=== PATIENT | female | born 1935 | race African-American/Black ===

== ENCOUNTER 2020-04-10 12:47 | Emergency (ER) | payer OTHER, MEDICAID, SELFPAY ==
--- NOTE | ~2020-04-10 | XR_ITS ---
XR knee LT 3V 04/10/2020 13:18 Indication: Left knee pain Procedure: 4 views left knee Comparison: No prior studies for comparison. Findings: There is a left total knee arthroplasty with longstem femoral and tibial components. Prosth esis well seated. There is lucency involving the medial femoral condyle, suspicious for nondisplaced fracture small joint effusion.. Impression: 1: Possible nondisplaced fracture medial femoral condyle. 2: Small joint effusion. Reviewed, dictated and finalized at location A. RY CUTTER OPERATOR Impression: 1: Possible nondisplaced fracture medial femoral condyle. 2: Small joint effusion.
[2020-04-10 12:57] VITALS: BP 133/100; PULSE 91; RESP 17; TEMP 35.7; O2SAT 99
--- NOTE | 2020-04-10 13:43 | ED.LOWEXIN ---
HPI - Extremity Injury (Lower) General Chief Complaint: Fall Stated Complaint: Fall, Left Knee Pain Time Seen by Provider: 04/10/20 12:55 Source: patient Mode of arrival: ambulatory Limitations: no limitations History of Present Illness HPI Narrative: Patient is an 85-year-old female complaining of left knee pain after she tripped and fell landing on her left knee. Patient denies any head, neck, back or any other extremity pain/injury. Patient denies any LOC. Patient has no other complaints. Related Data Allergies Allergy/AdvReac Type Severity Reaction Status Date / Time Carbonic Anhydrase Inhibitors Allergy Unknown Unknown Verified 04/10/20 12:59 iodine Allergy Unknown Unknown Verified 04/10/20 12:59 Penicillins Allergy Unknown Rash Verified 04/10/20 12:59 Sulfa (Sulfonamide Allergy Unknown Unknown Verified 04/10/20 12:59 Antibiotics) Review of Systems Review of Systems: All systems reviewed & are unremarkable except as noted in HPI and below Constitutional: Constitutional: Denies body ache(s), Denies chills, Denies excessive sweating, Denies fatigue, Denies fever(s), Denies headache(s), Denies lethargy, Denies malaise, Denies weakness and Denies weight loss Eyes: Eyes: Denies blurry vision, Denies change in vision and Denies loss of vision ENT: Denies dizziness, Denies ear discharge, Denies headache(s), Denies lip swelling, Denies epistaxis, Denies nasal congestion, Denies neck pain, Denies throat swelling and Denies tongue swelling Cardiovascular: Cardiovascular: Denies chest pain, Denies chest pain at rest, Denies chest pain with activity, Denies diaphoresis, Denies rapid heart rate, Denies edema, Denies irregular heart rhythm, Denies lightheadedness, Denies palpitations, Denies dyspnea and Denies dyspnea on exertion Respiratory: Respiratory: Denies chest congestion, Denies cough, Denies hemoptysis, Denies dyspnea and Denies dyspnea on exertion Gastrointestinal: Gastrointestinal: Denies abdominal pain, Denies melena, Denies hematochezia, Denies diarrhea, Denies nausea, Denies vomiting and Denies hematemesis Musculoskeletal: Musculoskeletal: Denies abnormal gait, Denies deformity, Denies joint swelling, Denies limited range of motion, Denies neck pain and Denies numbness Neurologic: Denies Abnormal speech present, Denies abnormal gait, Denies confusion, Denies dizziness, Denies headache(s), Denies focal weakness, Denies loss of vision, Denies numbness, Denies Other visual disturbances, Denies Sensory deficit (Neuro) and Denies weakness Psychiatric: Psychiatric: Denies confusion, Denies depression, Denies auditory hallucinations, Denies homicidal ideation and Denies suicidal ideation Endocrine: Endocrine: Denies cold intolerance, Denies excessive sweating, Denies fatigue, Denies heat intolerance and Denies palpitations Hematologic/Lymphatic: Hematologic/Lymphatic: Denies easy bleeding and Denies easy bruising Allergic/Immunologic: Allergic/Immunologic: Denies lip swelling, Denies throat swelling and Denies tongue swelling FOR[facility]LY [facility], [facility] Social History Social History Gender identity (if verbalized by the patient): Female Exam Const: General: healthy appearing, no acute distress and alert Orientation/consciousness: patient oriented x3 HENMT: Head: normal to inspection Eyes: General: appearance normal, both eyes and all related structures Conjunctivae: conjunctivae normal Neck: Neck: normal visual inspection Chest: Chest palpation & inspection: normal inspection of the chest Resp: Effort & Inspection: normal respiratory effort Skin: General skin exam: normal color Rashes: no rashes Neuro: General: patient oriented x3 and moves all extremities Extrem: Other: Negative for any significant deformity, swelling or redness. Pain on palpation of the left knee. Pain on range of motion of left knee but full range of motion. Neurovascular is intact. Course Vital Signs Vital signs: Vital Signs Temperature 35.7 C
[2020-04-10] MEDS: KETOROLAC 30 MG/ML VIAL (*BKC) IM (13:57)
[2020-04-10] MEDS: HYDROcodone/acetaminophen (*CRX) 5-325 MG TABLET 1 TAB PO (13:57)
== END 2020-04-10 15:52 | disposition home or self-care (01) ==
PROVIDERS: Emergency Provider Emergency Medicine; PCP Internal Medicine
DX: M25.562 Pain in left knee (principal); R93.6 Abnormal findings on diagnostic imaging of limbs; W01.0XXA Fall on same level from slipping, tripping and stumbling without subsequent striking against object, initial encounter
CPT/HCPCS: 73562; 96372; 99283; A9270; J1885

== ENCOUNTER 2022-05-24 20:08 | Observation (INO) | payer OTHER, MEDICAID, SELFPAY ==
[2022-05-24] VITALS (14 sets, daily range): BP systolic 92–171; BP diastolic 75–95; PULSE 65–89; RESP 12–29; TEMP 36.7; O2SAT 96–99
--- NOTE | ~2022-05-24 | CT_ITS ---
EXAMINATION: CT cervical spine wo con DATE: 05/24/2022 20:32 INDICATION: unwitnessed fall TECHNIQUE: Computed tomography (CT) of the cervical spine was performed without intravenous contrast. Automated exposure control and iterative reconstruction technique were employed. The dose-length pro duct was 324.38 mGy-cm. COMPARISON: None. FINDINGS: Vertebral Body Alignment: Intact. . Craniocervical and atlantoaxial alignment: Moderate degenerative change. Alignment intact. Osseous structures/fracture: No evidence of a lytic or blastic process in the visualized spine. No e vidence of acute fracture. . Cervical soft tissues: The paraspinal soft tissues planes are maintained. Degenerative changes: Degenerative changes, without severe neural foraminal or central canal narrowin g. IMPRESSION: No acute fracture or traumatic malalignment in the cervical spine. Reviewed, dictated and finalized at location K. AST REGULATOR OPERATOR
--- NOTE | ~2022-05-24 | CT_ITS ---
EXAMINATION: CT brain wo con DATE: 05/24/2022 20:30 INDICATION: unwitnessed fall, ?OCHOA . TECHNIQUE: Computed tomography (CT) of the head was performed without intravenous contrast. The mA wa s adjusted according to patient size. Iterative reconstruction technique was employed. The dose-lengt h product was 908.00 mGy-cm. COMPARISON: 06/21/2017. FINDINGS: No acute intracranial hemorrhage or extra-axial fluid collection. No hydrocephalus, mass, or herniation. No acute ischemic infarct. Unremarkable dural venous sinus attenuation. No acute osseous abnormality. Partial opacification of the right sphenoid sinus with surrounding sclerosis and inspissated/calcifie d intraluminal material, the remaining aerated spaces are clear. Moderate atrophy and chronic white matter change. Atherosclerotic intracranial calcification. Bilater al lens replacements. 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 IMPRESSION: No acute intracranial process. CT findings in the right sphenoid sinus may represent chronic sinusiti s in the appropriate clinical context Reviewed, dictated and finalized at location K. LOPMENT ARCHITECT IMPRESSION: No acute intracranial process. CT findings in the right sphenoid sinus may repr esent chronic sinusitis in the appropriate clinical context
--- NOTE | ~2022-05-24 | XR_ITS ---
EXAMINATION: XR chest 1V portable Exam Date/Time: 05/24/2022 21:15 COMMUNICATIONS AGENT HISTORY: unwitnessed fall. Comparison: 06/21/2017. RESULT: Lines, tubes, and devices: None. Lungs and pleura: Patchy subsegmental bibasilar airspace disease. Senescent changes. Cardiomediastinal silhouette: Stable. Other: No acute osseous or upper abdominal finding. IMPRESSION: Patchy bibasilar airspace disease may represent atelectasis or consolidation. Reviewed, dictated and finalized at location K. UNICATIONS AGENT
--- NOTE | 2022-05-24 20:18 | ED.FALL ---
HPI - Fall General Chief Complaint: Fall <Radha Panda PA-C - Last Filed: 05/25/22 00:43> Stated Complaint: fall <Radha Panda PA-C - Last Filed: 05/25/22 00:43> Time Seen by Provider: 05/24/22 20:11 <Radha Panda PA-C - Last Filed: 05/25/22 00:43> History of Present Illness HPI Narrative: 87-year-old female here for evaluation after a fall today. Patient was found by her daughters lying on the ground for an unknown amount of time this afternoon. Patient has a history of Alzheimer's dementia and lives at home with her daughters. Reportedly she is supposed to use a cane to ambulate but frequently does not. Patient denies any complaints, and was able to ambulate for EMS without any pain. She denies any head and head injury but also has a history of dementia. She is not sure what happened today. Daughter is at bedside and states that he received a call stating that patient was on the ground and the daughter was having a hard time getting her back in bed. States that when she was walking she felt unsteady. They tell me she is at her baseline currently. She has been coughing over the past several days productive of green sputum but has not been complaining of shortness of breath. No fevers at home. <Radha Panda PA-C - Last Filed: 05/25/22 00:43> Related Data Home Medications: Home Medications Medication Instructions Recorded Confirmed acetaminophen 500 mg tablet 500 mg PO Q6H PRN 04/21/20 04/21/20 (Tylenol Extra Strength) acyclovir 400 mg tablet 400 mg PO DAILY 04/21/20 04/21/20 amlodipine 10 mg tablet 10 mg PO DAILY 04/21/20 04/21/20 aspirin 81 mg tablet,delayed 81 mg PO DAILY 04/21/20 04/21/20 release (Adult Aspirin Regimen) atorvastatin 10 mg tablet 10 mg PO DAILY 04/21/20 04/21/20 azelastine 137 mcg (0.1 %) nasal 137 mcg intranasal Q12H 04/21/20 04/21/20 spray aerosol bromfenac 0.075 % eye drops 1 drp LEFT EYE ONCE 04/21/20 04/21/20 (BromSite) carboxymethylcellulose ea miscellaneous 04/21/20 04/21/20 carvedilol 6.25 mg tablet 6.25 mg PO Q12H 04/21/20 04/21/20 diclofenac sodium 50 mg 50 mg PO DAILY 04/21/20 04/21/20 tablet,delayed release ergocalciferol (vitamin D2) 1,250 1,250 mcg PO WEEKLY 04/21/20 04/21/20 mcg (50,000 unit) capsule furosemide 20 mg tablet 20 mg PO QAM 04/21/20 04/21/20 hydralazine 25 mg tablet 25 mg PO TID 04/21/20 04/21/20 hydrocodone 5 mg-acetaminophen 325 1 tablet PO Q8H PRN 04/21/20 04/21/20 mg tablet levothyroxine 25 mcg capsule 25 mcg PO DAILY 04/21/20 04/21/20 lidocaine 5 % topical patch 1 patch topical DAILY 04/21/20 04/21/20 linaclotide 145 mcg capsule 145 mcg PO DAILY 04/21/20 04/21/20 (Linzess) loteprednol etabonate 0.2 % eye 1 drp ophthalmic (eye) QID 04/21/20 04/21/20 drops,suspension (Alrex) memantine 10 mg tablet 10 mg PO QPM 04/21/20 04/21/20 montelukast 10 mg tablet 10 mg PO DAILY 04/21/20 04/21/20 mycophenolate mofetil 200 mg/mL 1,000 mg PO BID 04/21/20 04/21/20 oral suspension nitroglycerin 0.4 mg sublingual 0.4 mg sublingual Q5M PRN 04/21/20 04/21/20 tablet omeprazole 20 mg capsule,delayed 20 mg PO DAILY 04/21/20 04/21/20 release oxybutynin chloride 5 mg tablet 5 mg PO DAILY 04/21/20 04/21/20 pyridostigmine bromide 60 mg/5 mL 60 mg PO Q6H 04/21/20 04/21/20 oral syrup tafluprost (PF) 0.0015 % eye drops 1 drp LEFT EYE DAILY 04/21/20 04/21/20 in a dropperette <Radha Panda PA-C - Last Filed: 05/25/22 00:43> Allergies/Adverse Reactions: Allergies Allergy/AdvReac Type Severity Reaction Status Date / Time Carbonic Anhydrase Inhibitors Allergy Unknown Unknown Verified 04/10/20 12:59 iodine Allergy Unknown Unknown Verified 04/10/20 12:59 Penicillins Allergy Unknown Rash Verified 04/10/20 12:59 Sulfa (Sulfonamide Allergy Unknown Unknown Verified 04/10/20 12:59 Antibiotics) <Radha Panda PA-C - Last Filed: 05/25/22 00:43> Review of Systems Review of
[2022-05-24 21:14] LABS: Basophils Percent Auto 0.3 % (0.2-1.2); Eosinophils Percent Auto 0.2 % (0-4.4); Hematocrit 42.4 % (37.0-47.0); Hemoglobin 13.6 g/dL (12.0-15.0); Immature Granulocyte Absolute 0.06 K/mm3 (0.00-0.031); Immature Granulocyte Percent A 0.4 % (0-0.5); Lymphocytes Absolute Auto 1.75 K/mm3 (0.9-3.2); Lymphocytes Percent Auto 11.7 % (18.3-44.2); Mean Corpuscular HGB Conc 32.1 g/dl (32-36); Mean Corpuscular Hemoglobin 28.5 pg (26-34); Mean Corpuscular Volume 88.9 fl (80-100); Mean Platelet Volume 10.7 fl (7.4-10.4); Monocytes Percent Auto 6.4 % (2.6-8.5); Neutrophils Absolute Auto 12.2 K/mm3 (1.3-6.7); Platelet Count Result 161 k/mm3 (150-375); Red Blood Count 4.77 M/mm3 (4.2-5.4); Red Cell Distribution Width 13.2 % (11.5-14.5)
--- NOTE | 2022-05-24 21:16 | ECG_ITS ---
Measurements Intervals [place] Rate: 81 P: 69 NH: 171 QRS: 40 QRSD: 81 T: -1 QT: 357 QTc: 416 Interpretive Statements SINUS RHYTHM NONSPECIFIC T-WAVE ABNORMALITY ABNORMAL ECG NO PREVIOUS ECG AVAILABLE FOR COMPARISON Electronically Signed On 05-25-2022 10:08:51 OXIDATION OPERATOR by Felipe Velazquez M.D.
[2022-05-24 21:33] LABS: Alanine Aminotransferase 33 U/L (6-35); Alkaline Phosphatase 133 U/L (38-126); Anion Gap 3 mmol/L (8-16); Aspartate Amino Transferase 31 U/L (14-36); Bilirubin,Total 0.7 mg/dL (0.2-1.3); Blood Urea Nitrogen 16 mg/dL (7-17); Calcium 9.2 mg/dL (8.4-10.2); Carbon Dioxide 30 mmol/L (22-30); Chloride 110 mmol/L (98-107); Creatine Kinase 32 U/L (30-135); Estimated CRCL calculation 40 ml/min; Estimated Glomerular Filt Rate > 60; Glucose 156 mg/dL (65-110); Potassium 3.9 mmol/L (3.4-5.0); Sodium 143 mmol/L (137-145)
[2022-05-24 22:09] LABS: Troponin I 0.047 ng/mL (0.000-0.034)
[2022-05-24 22:15] LABS: Appearance Urine Clear (Clear); Bilirubin Urine 1+ (Negative); Blood Urine Negative (Negative); Color Urine Yellow (Yellow); Glucose Urine UA Negative (Negative); Ketones Urine 1+ mg/dL (Negative); Leukocyte Esterase Ur Negative LEU/UL (Negative); Nitrate Urine Negative (Negative); Protein Urine 1+ mg/dL (Negative); Specific Grav Ur 1.025 (1.001-1.035)
[2022-05-24 22:17] LABS: Bacteria Urine Trace /hpf; Calcium Oxalate Crystals Urine Present /hpf; Mucus Urine Moderate /lpf; Squamous Epithelial Cell Urine Occasional /hpf (Few)
[2022-05-24 22:18] LABS: Add Urine Microscopic? YES
[2022-05-24 22:55] LABS: SARS-CoV-2 RNA PCR Negative
[2022-05-24] MEDS: SODIUM CHLORIDE 0.9% IV 1,000 ML 999 ML IV CONT (23:45)
--- NOTE | 2022-05-24 23:50 | PM.IMHP ---
H&P: HPI History of Present Illness Date/Time: 05/24/22 23:50 Chief Complaint: fall Narrative: This is an 87-year-old female with past medical history significant for dyslipidemia, hypertension, hypothyroidism, patient on chronic immunosuppression therapy, dementia. patient is a pleasantly demented elderly female most of the history has been obtained from daughters who are at bedside. Patient was brought to the emergency room for evaluation after she was found down on the floor according to daughter had noticed that had been sleeping longer hours and decreased oral intake and confusion. Preliminary workup was significant for chest x-ray was reported as: IMPRESSION: Patchy bibasilar airspace disease may represent atelectasis or consolidation. CT of the head was reported as: FINDINGS: Vertebral Body Alignment: Intact. . Craniocervical and atlantoaxial alignment: Moderate degenerative change. Alignment intact. Osseous structures/fracture: No evidence of a lytic or blastic process in the visualized spine.? No evidence of acute fracture. . Cervical soft tissues: The paraspinal soft tissues planes are maintained. Degenerative changes: Degenerative changes, without severe neural foraminal or central canal narrowing. IMPRESSION:? No acute fracture or traumatic malalignment in the cervical spine. Review of Systems Review of Systems: ROS unobtainable: Yes unobtainable due to medical condition ( dementia) [facility] Past Medical History Medical History Hypertension Periprosthetic fracture around internal prosthetic left knee joint medial femoral condyle Ulcer Surgical History Surgical History History of total left knee replacement Family History Family History Other Diabetes mellitus Hypertension Social History Social History Smoking status: Never smoker Alcohol intake: never Substance use: never Living arrangements: alone Occupation/Education: retired Gender identity (if verbalized by the patient): Female Spiritual care concerns: No Meds Home Medications and Allergies Home Medications Medication Instructions Recorded Confirmed Type acyclovir 400 mg tablet 400 mg PO DAILY 04/21/20 04/21/20 History amlodipine 10 mg tablet 10 mg PO DAILY 04/21/20 04/21/20 History aspirin 81 mg tablet,delayed 81 mg PO DAILY 04/21/20 04/21/20 History release (Adult Aspirin Regimen) atorvastatin 10 mg tablet 10 mg PO DAILY 04/21/20 04/21/20 History carvedilol 6.25 mg tablet 6.25 mg PO Q12H 04/21/20 04/21/20 History ergocalciferol (vitamin D2) 1,250 1,250 mcg PO WEEKLY 04/21/20 04/21/20 History mcg (50,000 unit) capsule furosemide 20 mg tablet 20 mg PO QAM 04/21/20 04/21/20 History hydralazine 25 mg tablet 25 mg PO TID 04/21/20 04/21/20 History levothyroxine 25 mcg capsule 25 mcg PO DAILY 04/21/20 04/21/20 History memantine 10 mg tablet 10 mg PO QPM 04/21/20 04/21/20 History montelukast 10 mg tablet 10 mg PO DAILY 04/21/20 04/21/20 History mycophenolate mofetil 200 mg/mL 1,000 mg PO BID 04/21/20 04/21/20 History oral suspension nitroglycerin 0.4 mg sublingual 0.4 mg sublingual Q5M PRN 04/21/20 04/21/20 History tablet omeprazole 20 mg capsule,delayed 20 mg PO DAILY 04/21/20 04/21/20 History release oxybutynin chloride 5 mg tablet 5 mg PO DAILY 04/21/20 04/21/20 History linaclotide 290 mcg capsule 290 mcg PO DAILY 05/25/22 05/25/22 History (Linzess) Allergies Allergy/AdvReac Type Severity Reaction Status Date / Time Carbonic Anhydrase Inhibitors Allergy Unknown Unknown Verified 04/10/20 12:59 iodine Allergy Unknown Unknown Verified 04/10/20 12:59 Penicillins Allergy Unknown Rash Verified 04/10/20 12:59 Sulfa (Sulfonamide Allergy Unknown Unknown Verified 0
[2022-05-25] VITALS (20 sets, daily range): BP systolic 98–162; BP diastolic 48–104; PULSE 68–98; RESP 14–24; TEMP 36.2–36.9; O2SAT 92–100; BMI 25.7
[2022-05-25 00:07] LABS: Lactic Acid Reflex 0.9 mmol/L (0.7-2.0)
--- NOTE | 2022-05-25 01:28 | ADMGEN ---
This patient, Josi Chavis, was admitted to IMU Room 202-01 at 0105. Patient/family oriented to hospital policies and general routines including ID bracelet, bed and alarms, visiting hours, pain management, procedures, bathroom and other care routines, personal items, smoking policy, room service/diet, and visiting hours. Information on how to activate the Rapid Response Team has been discussed. Patient/Family are encouraged to report perceived risks to care and to ask questions if they do not understand what they are told or what they should do.
--- NOTE | 2022-05-25 11:25 | PM.IMPN ---
Progress Note: A&P Assessment and Plan (1) Pneumonia: Code(s): J18.9 - Pneumonia, unspecified organism Status: Acute Assessment and Plan: admit to regular medical floor started on Rocephin and Zithromax cultures in progress supportive care continue to monitor (2) Elevated troponin: Code(s): R77.8 - Other specified abnormalities of plasma proteins Status: Acute Assessment and Plan: patient with no chest pain continue to monitor will trend (3) Fall: Code(s): W19.XXXA - Unspecified fall, initial encounter Status: Acute Assessment and Plan: no acute fractures fall precautions (4) Dementia: Code(s): F03.90 - Unspecified dementia, unspecified severity, without behavioral disturbance, psychotic disturbance, mood disturbance, and anxiety Status: Acute Assessment and Plan: continue memantine (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: Code(s): D84.821 - Immunodeficiency due to drugs; T45.1X5A - Adverse effect of antineoplastic and immunosuppressive drugs, initial encounter; Z79.899 - Other correction (current) drug therapy Status: Acute Assessment and Plan: patient is on mycophenolate follow-up in outpatient setting Subjective Date/time seen: 05/25/22 11:25 no new complaints Exam Narrative: patient is laying in a stretcher Const: General: comfortable, no acute distress, well developed, alert, awake and average body habitus Nutritional Appearance: average body habitus Orientation/consciousness: oriented to person HENMT: Head: normal to inspection, normocephalic and atraumatic Ears: hearing grossly normal bilaterally Face/Nose/Sinus: normal facial exam Face and sinus: normal facial exam Eyes: General: appearance normal, both eyes and all related structures Pupils: Equal, round and reactive pupils present EOM: EOMs intact bilaterally Neck: Neck: full ROM, no lymphadenopathy and no JVD Thyroid: thyroid normal Lymphatic: no lymphadenopathy noted Resp: Effort & Inspection: normal respiratory effort and able to speak in complete sentences Auscultation: clear to auscultation bilaterally Cardio: Jugular venous distension: no JVD Rate: regular rate Rhythm: regular rhythm Heart sounds: S1 normal heart sound present and S2 normal heart sound present : General: Yes deferred Skin: Rashes: no rashes Wounds: no wounds Neuro: General: oriented to person, CN's II-XI intact bilaterally and Unable to assess gait Cranial nerves: Yes CN's II-XII intact bilaterally and Yes Equal, round and reactive pupils present Cognition (Neuro): normal cognition Speech: normal speech Gait exam (Neuro): Unable to assess gait Motor exam (neuro): 5/5 motor strength present throughout Extrem: General: normal to inspection, full ROM, no joint enlargement and no pedal edema Objective Data Vital Signs Vital Signs: Vital Signs - 24 hr 05/24/22 20:07 05/24/22 20:14 05/24/22 20:15 Temperature 98.0 F Pulse Rate 65 87 89 Respiratory Rate 16 22 H 18 Blood Pressure 142/95 H 142/95 H Pulse Oximetry 96 Oxygen Delivery Room Air 05/24/22 21:00 05/24/22 21:03 05/24/22 21:15 Temperature Pulse Rate 82 85 79 Respiratory Rate 14 25 H 12 Blood Pressure 171/86 H Pulse Oximetry Oxygen Delivery 05/24/22 21:30 05/24/22 21:40 05/24/22 21:46 Temperature Pulse Rate 83 78 81 Respiratory Rate 16 16 20 Blood Pressure 92/75 L Pulse Oximetry Oxygen Delivery 05/24/22 22:01 05/24/22 22:20 05/24/22 22:31 Temperature Pulse Rate 83 75 73 Respiratory Rate 29 H 22 H 20 Blood Pressure Pulse Oximetry 97 Oxygen Delivery 05/24/22 22:45 05/24/22 23:54 05/25/22 00:00 Temperature Pulse Rate 74 75 86 Respiratory Rate 17 20 21 H Blood Pressure 152/84 H Pulse Oximetry 99 97 Oxygen Delivery 05/25/22 00:01 05/25/22 00:17 05/25/22 00:30 Temperature Pu
[2022-05-25] MEDS: amLODIPine BESYLATE 5 MG TABLET 10 MG PO (12:22)
[2022-05-25] MEDS: mycophenolate mofetiL 250 MG CAPSULE 1000 MG PO ×2 (12:23→16:48)
[2022-05-25] MEDS: MONTELUKAST SODIUM 10 MG TABLET PO (12:24)
[2022-05-25] MEDS: carvediloL 6.25 MG TABLET PO ×2 (12:24→21:37)
[2022-05-25] MEDS: LINACLOTIDE 145 MCG CAPSULE 290 MCG PO (12:24)
[2022-05-25] MEDS: ATORVASTATIN 10 MG TABLET PO (12:24)
[2022-05-25] MEDS: LEVOTHYROXINE SODIUM 25 MCG TABLET PO (12:25)
[2022-05-25] MEDS: oxyBUTYnin CHLORIDE 5 MG TABLET PO (12:25)
[2022-05-25] MEDS: ACYCLOVIR 400 MG TABLET PO (12:25)
[2022-05-25] MEDS: ASPIRIN 81 MG ENTERIC TABLET PO (12:25)
[2022-05-25] MEDS: FUROSEMIDE 20 MG TABLET PO (12:25)
[2022-05-25] MEDS: hydrALAZINE HCL 25 MG TABLET PO ×2 (12:25→16:48)
[2022-05-25] MEDS: PANTOPRAZOLE 40 MG TABLET PO (12:26)
[2022-05-25] MEDS: MEMANTINE 10 MG TABLET 20 MG PO (16:48)
--- NOTE | 2022-05-25 18:40 | PC.NURSE ---
This patient, Josi Chavis, was transferred to [facility] on 05/25/22 at 1841. Personal belongings sent with patient. Report given to [ Stephie VAUGHAN/Lucinda VAUGHAN]. Appropriate documentation sent with patient.
--- NOTE | 2022-05-25 18:41 | PC.NURSE ---
This patient, Josi Chavis, was received from [IMU 202] on 05/25/22 at 1841. Patient oriented to unit policies and routines. Pt alert to self only, pt in bed with no complaints at this time. Bed alarm on zone 2.
[2022-05-26 03:34] VITALS: BP 104/56; PULSE 77; RESP 18; TEMP 36.6; O2SAT 100
[2022-05-26] MEDS: LINACLOTIDE 145 MCG CAPSULE 290 MCG PO (06:03)
[2022-05-26] MEDS: LEVOTHYROXINE SODIUM 25 MCG TABLET PO (06:03)
[2022-05-26 08:00] VITALS: O2SAT 100
[2022-05-26 08:45] LABS: Basophils Percent Auto 0.5 % (0.2-1.2); Eosinophils Absolute Auto 0.2 K/mm3 (0-0.3); Eosinophils Percent Auto 2.2 % (0-4.4); Hematocrit 42.3 % (37.0-47.0); Hemoglobin 13.5 g/dL (12.0-15.0); Immature Granulocyte Absolute 0.02 K/mm3 (0.00-0.031); Immature Granulocyte Percent A 0.2 % (0-0.5); Lymphocytes Absolute Auto 2.43 K/mm3 (0.9-3.2); Lymphocytes Percent Auto 29.3 % (18.3-44.2); Mean Corpuscular HGB Conc 31.9 g/dl (32-36); Mean Corpuscular Hemoglobin 28.2 pg (26-34); Mean Corpuscular Volume 88.5 fl (80-100); Mean Platelet Volume 10.5 fl (7.4-10.4); Monocytes Absolute Auto 0.7 K/mm3 (0.1-0.6); Monocytes Percent Auto 8.8 % (2.6-8.5); Neutrophils Absolute Auto 4.9 K/mm3 (1.3-6.7); Platelet Count Result 150 k/mm3 (150-375); Red Blood Count 4.78 M/mm3 (4.2-5.4); Red Cell Distribution Width 13.2 % (11.5-14.5); White Blood Count 8.3 K/mm3 (4.5-10.0)
[2022-05-26 09:01] VITALS: BP 160/88
[2022-05-26] MEDS: mycophenolate mofetiL 250 MG CAPSULE 1000 MG PO (09:01)
[2022-05-26] MEDS: PANTOPRAZOLE 40 MG TABLET PO (09:01)
[2022-05-26] MEDS: FUROSEMIDE 20 MG TABLET PO (09:01)
[2022-05-26] MEDS: ASPIRIN 81 MG ENTERIC TABLET PO (09:01)
[2022-05-26 09:02] VITALS: PULSE 77
[2022-05-26] MEDS: hydrALAZINE HCL 25 MG TABLET PO ×2 (09:02→12:20)
[2022-05-26] MEDS: amLODIPine BESYLATE 5 MG TABLET 10 MG PO (09:02)
[2022-05-26] MEDS: carvediloL 6.25 MG TABLET PO (09:02)
[2022-05-26] MEDS: MONTELUKAST SODIUM 10 MG TABLET PO (09:02)
[2022-05-26] MEDS: ATORVASTATIN 10 MG TABLET PO (09:02)
[2022-05-26] MEDS: ACYCLOVIR 400 MG TABLET PO (09:02)
[2022-05-26] MEDS: oxyBUTYnin CHLORIDE 5 MG TABLET PO (09:02)
--- NOTE | 2022-05-26 11:59 | PM.DS ---
DS: Admitting Diagnosis Discharge Date May 26, 2022 Admitting Diagnosis Pneumonia DS: Discharge Diagnosis Discharge Diagnosis (1) Pneumonia: Code(s): J18.9 - Pneumonia, unspecified organism Status: Acute Assessment and Plan: admit to regular medical floor started on Rocephin and Zithromax cultures in progress supportive care continue to monitor (2) Elevated troponin: Code(s): R77.8 - Other specified abnormalities of plasma proteins Status: Acute Assessment and Plan: patient with no chest pain continue to monitor will trend (3) Fall: Code(s): W19.XXXA - Unspecified fall, initial encounter Status: Acute Assessment and Plan: no acute fractures fall precautions (4) Dementia: Code(s): F03.90 - Unspecified dementia, unspecified severity, without behavioral disturbance, psychotic disturbance, mood disturbance, and anxiety Status: Acute Assessment and Plan: continue memantine (5) Immunodeficiency due to lobsterman immunosuppressive drug therapy: Code(s): D84.821 - Immunodeficiency due to drugs; T45.1X5A - Adverse effect of antineoplastic and immunosuppressive drugs, initial encounter; Z79.899 - Other half-way (current) drug therapy Status: Acute Assessment and Plan: patient is on mycophenolate follow-up in outpatient setting DS: Summary Hospital Course Hospital Course: 79-year-old admitted for pneumonia. Rocephin and azithromycin IV did exceptionally well. Not requiring any oxygen. Patient was discharged home on antibiotics Time Spent with Patient Time attestation: Total time spent providing and/or coordinating discharge services: Exam Narrative: patient is laying in a stretcher Const: General: comfortable, no acute distress, well developed, alert, awake and average body habitus Nutritional Appearance: average body habitus Orientation/consciousness: oriented to person HENMT: Head: normal to inspection, normocephalic and atraumatic Ears: hearing grossly normal bilaterally Face/Nose/Sinus: normal facial exam Face and sinus: normal facial exam Eyes: General: appearance normal, both eyes and all related structures Pupils: Equal, round and reactive pupils present EOM: EOMs intact bilaterally Neck: Neck: full ROM, no lymphadenopathy and no JVD Thyroid: thyroid normal Lymphatic: no lymphadenopathy noted Resp: Effort & Inspection: normal respiratory effort and able to speak in complete sentences Auscultation: clear to auscultation bilaterally Cardio: Jugular venous distension: no JVD Rate: regular rate Rhythm: regular rhythm Heart sounds: S1 normal heart sound present and S2 normal heart sound present : General: Yes deferred Skin: Rashes: no rashes Wounds: no wounds Neuro: General: oriented to person, CN's II-XI intact bilaterally and Unable to assess gait Cranial nerves: Yes CN's II-XII intact bilaterally and Yes Equal, round and reactive pupils present Cognition (Neuro): normal cognition Speech: normal speech Gait exam (Neuro): Unable to assess gait Motor exam (neuro): 5/5 motor strength present throughout Extrem: General: normal to inspection, full ROM, no joint enlargement and no pedal edema DS: Data Data Completed and Pending Labs on day of discharge: Labs from last 24 hours 05/26/22 08:36 WBC 8.3 RBC 4.78 Hgb 13.5 Hct 42.3 MCV 88.5 MCH 28.2 MCHC 31.9 L RDW 13.2 Plt Count 150 MPV 10.5 H Immature Gran % (Auto) 0.2 Neut % (Auto) 59.0 Lymph % (Auto) 29.3 [place] % (Auto) 8.8 H Eos % (Auto) 2.2 Baso % (Auto) 0.5 Lymph # (Auto) 2.43 [place] # (Auto) 0.7 H Eos # (Auto) 0.2 Baso # (Auto) 0.0 Abs Immat Gran (auto) 0.02 Absolute Neuts (auto) 4.9 Absolute Nucleated RBC 0.0 Nucleated RBC % 0.0 Discharge Plan Discharge Attending physician on discharge: Anand Gongora Consulting providers: Radha Panda Discharging [facility]
== END 2022-05-26 14:46 | disposition home or self-care (01) ==
LOC: ANHED 05-25 00:43 → ANH2MED 05-26 09:10 → ANHIMU 05-29 11:44
PROVIDERS: Admitting Provider Internal Medicine; Emergency Provider Physician Assistant; Visit Provider Chiropractor
DX: J18.9 Pneumonia, unspecified organism (principal); R77.8 Other specified abnormalities of plasma proteins; W19.XXXA Unspecified fall, initial encounter; D84.821 Immunodeficiency due to drugs; F03.90 Unspecified dementia, unspecified severity, without behavioral disturbance, psychotic disturbance, mood disturbance, and anxiety; T45.1X5A Adverse effect of antineoplastic and immunosuppressive drugs, initial encounter; Z20.822 Contact with and (suspected) exposure to COVID-19; R26.81 Unsteadiness on feet; I10 Essential (primary) hypertension; R94.31 Abnormal electrocardiogram [ECG] [EKG]; Z96.652 Presence of left artificial knee joint; Z79.1 Long term (current) use of non-steroidal anti-inflammatories (NSAID); Z79.82 Long term (current) use of aspirin; Z79.891 Long term (current) use of opiate analgesic; Z79.899 Other long term (current) drug therapy; Z84.89 Family history of other specified conditions
CPT/HCPCS: 36415; 70450; 71045; 72125; 80053; 81001; 82550; 83605; 84484; 85025; 93005; 96365; 96366; 96367; 99285; A9270; G0378; J0456; J0696; J7030; J7517; U0003; U0005

== ENCOUNTER 2022-06-04 13:32 | Observation (INO) | payer OTHER, MEDICAID, SELFPAY ==
--- NOTE | ~2022-06-04 | CT_ITS ---
EXAMINATION: CT brain wo con DATE: 06/04/2022 14:06 INDICATION: Near syncope. TECHNIQUE: Computed tomography (CT) of the head was performed without intravenous contrast. The mA wa s adjusted according to patient size. Iterative reconstruction technique was employed. The dose-lengt h product was 605.33 mGy-cm. COMPARISON: Head CT 05/24/2022 FINDINGS: There are old infarcts involving the left basal ganglia, anterior left internal capsule, le ft frontal lobe barraza radiata. There are scattered areas of low attenuation in the cerebral white ma tter, which is within normal limits for the patient's age. There is no intracranial hemorrhage, acut e infarction, or abnormal intracranial mass lesion. There is an old infarct involving the genu of the corpus callosum on the right. There is mild ex vacuo dilatation of left lateral ventricle. There is mucosal thickening in the sphenoid sinus with sclerosis of the sinus ordaz, consistent with chronic s inusitis. There are likely changes of ocular lens replacement surgeries. There is a small implant at the surface of the left ocular globe. The mastoid air cells are normal. IMPRESSION: 1. Old infarcts involving the left basal ganglia, anterior limb left internal capsule, and bilateral frontal lobe white matter. 2. Chronic sinusitis. Reviewed, dictated and finalized at location A. HETTI PRESS HELPER IMPRESSION: 1. Old infarcts involving the left basal ganglia, anterior limb left internal c apsule, and bilateral frontal lobe white matter. 2. Chronic sinusitis.
--- NOTE | ~2022-06-04 | XR_ITS ---
EXAMINATION: XR chest 1V DATE: 06/04/2022 14:10 INDICATION: Near syncope. TECHNIQUE: A single frontal view of the chest was obtained. COMPARISON: Chest one view 05/24/2022 FINDINGS: There is mild atelectasis in the right lower lung zone. No pleural effusion or pneumothorax . The heart size is normal. IMPRESSION: 1. Mild atelectasis in right lower lung zone. Reviewed, dictated and finalized at location A. NER MANAGEMENT CONSULTANT
--- NOTE | ~2022-06-04 | CT_ITS ---
EXAMINATION: CT abdomen pelvis wo con DATE: 06/05/2022 10:59 INDICATION: Abdominal pain. TECHNIQUE: Computed tomography (CT) of the abdomen and pelvis was performed without intravenous contr ast. Automated exposure control and iterative reconstruction technique were employed. The dose-length product was 824.87 mGy-cm. COMPARISON: None. FINDINGS: The visualized portions of the lung bases demonstrate mild atelectasis. A calcified right l mariel nodule is consistent with old granulomatous disease. No pleural effusion. Cardiomegaly is noted. There are coronary artery calcifications. No pericardial effusion. The liver, gallbladder, pancreas, and adrenal glands are normal. Calcifications in the spleen are consistent with old granulomatous dis ease. There is cortical thinning of the kidneys. A 4 mm calcification in right kidney is likely paren chymal. There is calcified atherosclerosis of the aorta and many of the other arteries. There is dive rticulosis of the colon without evidence of diverticulitis. There is focal wall thickening in the tra nsverse colon. There are no pathologically enlarged lymph nodes. There is no free intraperitoneal flu id. There is moderate thoracic spondylosis and severe lumbar spondylosis. IMPRESSION: 1. Focal wall thickening in the transverse colon, which is indeterminate for malignancy. A contrast e nema is recommended. Reviewed, dictated and finalized at location A. ITECTURE DEPARTMENT CHAIR IMPRESSION: 1. Focal wall thickening in the transverse colon, which is indeterminate for ma lignancy. A contrast enema is recommended.
--- NOTE | ~2022-06-04 | XR_ITS ---
EXAMINATION: XR_ENEMAB_CR DATE: 06/07/2022 09:25 INDICATION: Focal colonic wall thickening along the transverse colon on prior CT TECHNIQUE: A [employer] radiograph was obtained. A catheter was inserted into the patient's rectum. Contra st was infused by gravity. Gas was infused by hand pump. Fluoroscopic spot images and conventional ra diographs were obtained. Fluoroscopy exposure time was 2.7 minutes. A total of 45 fluoroscopic images and 13 overhead radiographs were obtained. Total DAP was 57.452 Gycm^2 COMPARISON: CT dated 06/05/2022 FINDINGS: There was recurrent leakage of gas and contrast around the enema catheter bulb. This along with a si gnificant amount of residual stool present in the proximal colon prevented complete contrast filling of the colon with the cecum, ascending colon and hepatic flexure remaining unopacified and are not ev aluated. Contrast did progress beyond the region of concern in the proximal to mid transverse colon. There are several diverticula scattered along the descending and sigmoid colon. Curvilinear contrast delineates a 1.7 x 0.9 cm filling defect with relatively smooth margins in the distal sigmoid colon n ear the rectosigmoid junction which remains unchanged in position throughout the course of the study suggesting a colonic polyp. On the right crosstable lateral projection of the rectum obtained in the prone position there appears to be a second similar-appearing 1.8 x 1.2 cm filling defect along the p osterior wall which is not identified on the remaining images likely due to its dependent position wi th supine imaging. IMPRESSION: 1. Incomplete study with the ascending colon and hepatic flexure remaining unopacified due to combina tion of moderate amount of residual stool in the proximal colon and significant recurrent leakage jose l und the enema bulb. 2. Region of concern at the proximal to mid transverse colon is adequately opacified and appears norm al with no mucosal irregularities, strictures, mucosal thickening or mass. 3. Couple small ovoid filling defects with smooth margins near the rectosigmoid junction at least one of which can be identified on multiple images throughout the study which would favor a fixed sessile polyp over mobile stool. Would consider further evaluation with colonoscopy which would also allow f or evaluation of the nonopacified proximal colon. Reviewed, dictated and finalized at location A. R GUIDE IMPRESSION: 1. Incomplete study with the ascending colon and hepatic flexure remaining unop acified due to combination of moderate amount of residual stool in the proximal colon and significant recurrent leakage around the enema bulb. 2. Region of concern at the proximal to mid transverse colon is adequately opac ified and appears normal with no mucosal irregularities, strictures, mucosal th ickening or mass. 3. Couple small ovoid filling defects with smooth margins near the rectosigmoid junction at least one of which can be identified on multiple images throughout the study which would favor a fixed sessile polyp over mobile stool. Would con crowd controller further evaluation with colonoscopy which would also allow for evaluation of the nonopacified proximal colon.
[2022-06-04 13:29] VITALS: BP 117/61; PULSE 41; RESP 15; TEMP 36.4; O2SAT 95
--- NOTE | 2022-06-04 13:48 | ECG_ITS ---
Measurements Intervals [place] Rate: 63 P: 42 [place]: 179 QRS: 23 QRSD: 72 T: 1 QT: 376 QTc: 387 Interpretive Statements SINUS RHYTHM BORDERLINE ST-T WAVE ABNORMALITY- INFERIOR LEADS BASELINE ARTIFACT- I, II, III, AVR, AVL BORDERLINE ECG COMPARED TO ECG 05/24/2022 21:30:11 NO SIGNIFICANT CHANGES Electronically Signed On 06-05-2022 11:14:47 FENCE INSTALLER FOREMAN by Hernando Hassan D.O.
--- NOTE | 2022-06-04 13:48 | ED.GENADULT ---
HPI - General Adult General Chief complaint: Syncope Stated complaint: poss syncopal Source: family and EMS Mode of arrival: EMS Limitations: dementia History of Present Illness HPI narrative: Patient is 87 years old -Irish female came to the emergency room by ambulance from home with syncope. Patient lives alone, have 2 daughters who are alternating taking care of her 23/10. Patient had a path today in the sitting position, her daughter was able to dry her up then went to the sink to brush her teeth in a standing position and immediately slammed over shaking, eyes glazed over, left hand grasping on the toothbrush tightly, daughter was able to ease her down to the floor and was unresponsive for up to 3 minutes. Patient is DNR DNI. Patient came to our emergency room and May 24, 2022 after found on the floor by her daughter. Was discharged 2 days later with a diagnosis of pneumonia. Patient's daughter who came with the patient to the emergency room is telling me that the other sister does not give her mom her medications. Related Data Home Medications Medication Instructions Recorded Confirmed acyclovir 400 mg tablet 400 mg PO DAILY 04/21/20 05/25/22 amlodipine 10 mg tablet 10 mg PO DAILY 04/21/20 05/25/22 aspirin 81 mg tablet,delayed 81 mg PO DAILY 04/21/20 05/25/22 release (Adult Aspirin Regimen) atorvastatin 10 mg tablet 10 mg PO DAILY 04/21/20 05/25/22 carvedilol 6.25 mg tablet 6.25 mg PO Q12H 04/21/20 05/25/22 ergocalciferol (vitamin D2) 1,250 1,250 mcg PO WEEKLY 04/21/20 05/25/22 mcg (50,000 unit) capsule furosemide 20 mg tablet 20 mg PO QAM 04/21/20 05/25/22 hydralazine 25 mg tablet 25 mg PO TID 04/21/20 05/25/22 levothyroxine 25 mcg capsule 25 mcg PO DAILY 04/21/20 05/25/22 memantine 10 mg tablet 20 mg PO QPM 04/21/20 05/25/22 montelukast 10 mg tablet 10 mg PO DAILY 04/21/20 05/25/22 mycophenolate mofetil 200 mg/mL 1,000 mg PO BID 04/21/20 05/25/22 oral suspension nitroglycerin 0.4 mg sublingual 0.4 mg sublingual Q5M PRN Chest 04/21/20 05/25/22 tablet Pain omeprazole 20 mg capsule,delayed 20 mg PO DAILY 04/21/20 05/25/22 release oxybutynin chloride 5 mg tablet 5 mg PO DAILY 04/21/20 05/25/22 linaclotide 290 mcg capsule 290 mcg PO DAILY 05/25/22 05/25/22 (Linzess) Allergies Allergy/AdvReac Type Severity Reaction Status Date / Time Carbonic Anhydrase Inhibitors Allergy Unknown Unknown Verified 04/10/20 12:59 iodine Allergy Unknown Unknown Verified 04/10/20 12:59 Penicillins Allergy Unknown Rash Verified 04/10/20 12:59 Sulfa (Sulfonamide Allergy Unknown Unknown Verified 04/10/20 12:59 Antibiotics) Review of Systems Review of Systems: All systems reviewed & are unremarkable except as noted in HPI and below PMFSH Past Medical History Medical History Hypertension Periprosthetic fracture around internal prosthetic left knee joint medial femoral condyle Ulcer Surgical History Surgical History History of total left knee replacement Family History Family History Other Diabetes mellitus Hypertension Social History Social History Smoking status: Never smoker Alcohol intake: never Substance use: never Living arrangements: alone Occupation/Education: retired Gender identity (if verbalized by the patient): Female Spiritual care concerns: No Exam Narrative: General appearance: Well-developed, well-nourished Skin: Normal color Head: Normocephalic, nontraumatic Eyes: Clear conjunctiva ENT: Oropharynx normal, ears normal, nose normal Neck: Supple, nontender Chest and respiratory: Airway patent, no respiratory distress, no accessory muscle use Heart: Regular rate/rhythm Abdomen: Soft, nontender, no organomegaly, quiet bowel sounds Vascular: Normal periphera
--- NOTE | 2022-06-04 15:02 | PC.NURSE ---
unable to obtain Iv access on pt.
[2022-06-04 17:07] LABS: Basophils Percent Auto 0.3 % (0.2-1.2); Eosinophils Absolute Auto 0.1 K/mm3 (0-0.3); Eosinophils Percent Auto 0.6 % (0-4.4); Hematocrit 43.4 % (37.0-47.0); Hemoglobin 13.6 g/dL (12.0-15.0); Immature Granulocyte Absolute 0.04 K/mm3 (0.00-0.031); Immature Granulocyte Percent A 0.4 % (0-0.5); Lymphocytes Percent Auto 18.1 % (18.3-44.2); Mean Corpuscular HGB Conc 31.3 g/dl (32-36); Mean Corpuscular Hemoglobin 28.8 pg (26-34); Mean Corpuscular Volume 91.8 fl (80-100); Monocytes Absolute Auto 0.6 K/mm3 (0.1-0.6); Monocytes Percent Auto 5.1 % (2.6-8.5); Neutrophils Absolute Auto 8.3 K/mm3 (1.3-6.7); Neutrophils Percent Auto 75.5 % (45.5-73.1); Platelet Count Result 183 k/mm3 (150-375); Red Blood Count 4.73 M/mm3 (4.2-5.4); Red Cell Distribution Width 13.4 % (11.5-14.5)
[2022-06-04 17:20] LABS: Alanine Aminotransferase 16 U/L (6-35); Alkaline Phosphatase 120 U/L (38-126); Anion Gap 2 mmol/L (8-16); Aspartate Amino Transferase 27 U/L (14-36); Bilirubin,Total 0.4 mg/dL (0.2-1.3); Blood Urea Nitrogen 15 mg/dL (7-17); Calcium 9.5 mg/dL (8.4-10.2); Carbon Dioxide 31 mmol/L (22-30); Chloride 108 mmol/L (98-107); Estimated Glomerular Filt Rate > 60; Glucose 91 mg/dL (65-110); Potassium 4.3 mmol/L (3.4-5.0); Sodium 141 mmol/L (137-145)
[2022-06-04 17:32] LABS: Troponin I < 0.012 ng/mL (0.000-0.034)
[2022-06-04 19:04] VITALS: BP 102/71; PULSE 68; RESP 18; O2SAT 100
--- NOTE | 2022-06-04 19:36 | PM.IMHP ---
H&P: HPI History of Present Illness Date/Time: 06/04/22 Chief Complaint: Weakness. Narrative: This is an 87-year-old female with PMFSH Past Medical History Medical History Hypertension Periprosthetic fracture around internal prosthetic left knee joint medial femoral condyle Ulcer Surgical History Surgical History History of total left knee replacement Family History Family History Other Diabetes mellitus Hypertension Social History Social History Smoking status: Never smoker Alcohol intake: never Substance use: never Living arrangements: alone Occupation/Education: retired Gender identity (if verbalized by the patient): Female Spiritual care concerns: No Meds Home Medications and Allergies Home Medications Medication Instructions Recorded Confirmed Type acyclovir 400 mg tablet 400 mg PO DAILY 04/21/20 05/25/22 History amlodipine 10 mg tablet 10 mg PO DAILY 04/21/20 05/25/22 History aspirin 81 mg tablet,delayed 81 mg PO DAILY 04/21/20 05/25/22 History release (Adult Aspirin Regimen) atorvastatin 10 mg tablet 10 mg PO DAILY 04/21/20 05/25/22 History carvedilol 6.25 mg tablet 6.25 mg PO Q12H 04/21/20 05/25/22 History ergocalciferol (vitamin D2) 1,250 1,250 mcg PO WEEKLY 04/21/20 05/25/22 History mcg (50,000 unit) capsule furosemide 20 mg tablet 20 mg PO QAM 04/21/20 05/25/22 History hydralazine 25 mg tablet 25 mg PO TID 04/21/20 05/25/22 History levothyroxine 25 mcg capsule 25 mcg PO DAILY 04/21/20 05/25/22 History memantine 10 mg tablet 20 mg PO QPM 04/21/20 05/25/22 History montelukast 10 mg tablet 10 mg PO DAILY 04/21/20 05/25/22 History mycophenolate mofetil 200 mg/mL 1,000 mg PO BID 04/21/20 05/25/22 History oral suspension nitroglycerin 0.4 mg sublingual 0.4 mg sublingual Q5M PRN Chest 04/21/20 05/25/22 History tablet Pain omeprazole 20 mg capsule,delayed 20 mg PO DAILY 04/21/20 05/25/22 History release oxybutynin chloride 5 mg tablet 5 mg PO DAILY 04/21/20 05/25/22 History linaclotide 290 mcg capsule 290 mcg PO DAILY 05/25/22 05/25/22 History (Linzess) cefdinir 300 mg capsule 300 mg PO Q12H #10 caps 05/26/22 Rx Allergies Allergy/AdvReac Type Severity Reaction Status Date / Time Carbonic Anhydrase Inhibitors Allergy Unknown Unknown Verified 04/10/20 12:59 iodine Allergy Unknown Unknown Verified 04/10/20 12:59 Penicillins Allergy Unknown Rash Verified 04/10/20 12:59 Sulfa (Sulfonamide Allergy Unknown Unknown Verified 04/10/20 12:59 Antibiotics) Vital Signs Vital Signs - 24 hr 06/04/22 13:29 06/04/22 19:04 Temperature 97.6 F Pulse Rate 41 L 68 Respiratory Rate 15 18 Blood Pressure 117/61 102/71 Pulse Oximetry 95 100 Oxygen Delivery Room Air H&P: Results Labs Labs: Short CBC 06/04/22 Range/Units 16:59 WBC 11.0 H (4.5-10.0) K/mm3 Hgb 13.6 (12.0-15.0) g/dL Hct 43.4 (37.0-47.0) % Plt Count 183 (150-375) k/mm3 BMP 06/04/22 16:59 Sodium 141 Potassium 4.3 Chloride 108 H Carbon Dioxide 31 H BUN 15 Creatinine 0.70 Glucose 91 Calcium 9.5 Cardiac Enzymes 06/04/22 Range/Units 16:59 Troponin I < 0.012 (0.000-0.034) ng/mL Liver Function 06/04/22 Range/Units 16:59 Total Bilirubin 0.4 (0.2-1.3) mg/dL AST 27 (14-36) U/L ALT 16 (6-35) U/L Alkaline Phosphatase 120 (38-126) U/L Albumin 4.0 (3.5-5.1) g/dL
--- NOTE | 2022-06-04 19:37 | ADMGEN ---
This patient, Josi Chavis, was admitted to Medical Room 246-. Patient/family oriented to hospital policies and general routines including ID bracelet, bed and alarms, visiting hours, pain management, procedures, bathroom and other care routines, personal items, smoking policy, room service/diet, and visiting hours. Information on how to activate the Rapid Response Team has been discussed. Patient/Family are encouraged to report perceived risks to care and to ask questions if they do not understand what they are told or what they should do.
[2022-06-04] MEDS: SODIUM CHLORIDE 0.9% IV 1,000 ML 60 ML IV CONT (19:58)
[2022-06-04 20:00] VITALS: PULSE 68; PULSE 73; RESP 18; O2SAT 100
[2022-06-04 20:00] LABS: Prothrombin Time 12.6 Seconds (11.1-14.7)
[2022-06-04 20:01] LABS: Partial Thromboplastin Time 27.6 SECONDS (22.3-36.8)
--- NOTE | 2022-06-04 20:24 | PM.IMHP ---
H&P: HPI History of Present Illness Date/Time: 06/04/22 20:24 Chief Complaint: Almost passed out Narrative: 87-year-old female with past medical history of dementia,essential hypertension, hyperlipidemia, hypothyroidism, GERD, urge urinary incontinence and myasthenia gravis who presented to the ER via EMS from home due to weakness and near syncope. The entirety of HPI and Past Medical history was obtained from review of past medical records and ER and nursing report. The patient is alert oriented only to 1st and last name. This is the patient's baseline due to her dementia. The patient has 2 daughters at alternate taking care for 24 hours a day 7 days a week. As the patient has 1 daughter evidently is not the most consistent with giving the patient her medications. The patient had not had any of her medications today. Evidently the daughter was bathing and helping the patient with her activities of daily living. When the patient stood up to go to the sink to brush her teeth the patient slumped over and her eyes work glazed over. The patient was still grasping her toothbrush tightly. Her daughter used her down to the floor. The patient was evidently not returned to her baseline for about 3 minutes. The patient was last hospitalized May 24, 2022 with pneumonia and was discharged on cefdinir which should have been completed on May 31. There is no reported the patient having any cough and she is not having any respiratory symptoms at the time of my exam. The patient evidently did not receive any of her medications today including her medications for myasthenia gravis. The patient is pleasantly confused and has no complaints. The patient is conversational but does not necessarily answer questions appropriately and will talk about other topics that the examiner did not actually mention. 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 Code status: DNR/DNI Healthcare power of attorney at law: Shari Javed (daughter) Smoking status: Never smoker Alcohol intake: never Substance use: never Lack of Transportation: No Lack of Food: Never True Current Housing: I Have Housing Concerned About Future Housing: No Difficulty Paying Gas/Electric Bills: No Difficulty Paying for Meds: No Currently Unemployed: No Education: Trade/Vocational Certificate Difficulty w/ Childcare or Family Care: No Living arrangements: alone Occupation/Education: retired Gender identity (if verbalized by the patient): Female Spiritual care concerns: No Meds Home Medications and Allergies Home Medications Medication Instructions Recorded Confirmed Type acyclovir 400 mg tablet 400 mg PO DAILY 04/21/20 06/04/22 History amlodipine 10 mg tablet 10 mg PO DAILY 04/21/20 06/04/22 Histor
[2022-06-04 21:11] LABS: Magnesium 2.2 mg/dL (1.6-2.3)
[2022-06-04 22:12] VITALS: BMI 32.5
[2022-06-04 22:13] VITALS: BP 146/53; PULSE 79; RESP 20; TEMP 36.6; O2SAT 98
[2022-06-04] MEDS: mycophenolate mofetiL 250 MG CAPSULE 500 MG PO (22:18)
[2022-06-04 22:19] VITALS: PULSE 78
[2022-06-04] MEDS: GLYCOPYRROLATE 1 MG TABLET PO (22:19)
[2022-06-04] MEDS: MEMANTINE 10 MG TABLET 20 MG PO (22:19)
[2022-06-04] MEDS: carvediloL 6.25 MG TABLET PO (22:19)
[2022-06-04] MEDS: pyRIDostigmine bromide 60 MG TABLET PO (22:19)
[2022-06-04 22:35] LABS: Appearance Urine Clear (Clear); Bilirubin Urine Negative (Negative); Blood Urine Negative (Negative); Color Urine Yellow (Yellow); Glucose Urine UA Negative (Negative); Ketones Urine Negative (Negative); Leukocyte Esterase Ur Negative LEU/UL (Negative); Nitrate Urine Negative (Negative); Protein Urine Negative (Negative)
[2022-06-04 22:46] LABS: Mucus Urine Rare /lpf; Squamous Epithelial Cell Urine Few /hpf (Few); WBC Urine 0-3 /hpf
[2022-06-04 23:05] LABS: Add Urine Microscopic? NO
[2022-06-05] VITALS (14 sets, daily range): BP systolic 113–151; BP diastolic 49–78; PULSE 66–85; RESP 18–21; TEMP 36.2–36.6; O2SAT 70–100; BMI 32.5
[2022-06-05 05:21] LABS: Hematocrit 40.1 % (37.0-47.0); Hemoglobin 12.4 g/dL (12.0-15.0); Mean Corpuscular HGB Conc 30.9 g/dl (32-36); Mean Corpuscular Hemoglobin 28.5 pg (26-34); Mean Corpuscular Volume 92.2 fl (80-100); Mean Platelet Volume 11.2 fl (7.4-10.4); Platelet Count Result 141 k/mm3 (150-375); Red Blood Count 4.35 M/mm3 (4.2-5.4); Red Cell Distribution Width 13.2 % (11.5-14.5); White Blood Count 7.6 K/mm3 (4.5-10.0)
[2022-06-05 05:30] LABS: Anion Gap 0 mmol/L (8-16); Blood Urea Nitrogen 14 mg/dL (7-17); Calcium 8.8 mg/dL (8.4-10.2); Carbon Dioxide 27 mmol/L (22-30); Chloride 114 mmol/L (98-107); Estimated Glomerular Filt Rate > 60; Glucose 104 mg/dL (65-110); Potassium 3.8 mmol/L (3.4-5.0); Sodium 141 mmol/L (137-145)
[2022-06-05] MEDS: LEVOTHYROXINE SODIUM 25 MCG TABLET PO (06:17)
[2022-06-05] MEDS: LINACLOTIDE 145 MCG CAPSULE 290 MCG PO (06:17)
[2022-06-05 06:20] LABS: Thyroid Stimulating Hormone Reflex 0.433 uIU/mL (0.465-4.68)
[2022-06-05] MEDS: GLYCOPYRROLATE 1 MG TABLET PO ×2 (09:24→18:02)
[2022-06-05] MEDS: oxyBUTYnin CHLORIDE 5 MG TABLET PO (09:24)
[2022-06-05] MEDS: ACYCLOVIR 400 MG TABLET PO (09:24)
[2022-06-05] MEDS: ASPIRIN 81 MG ENTERIC TABLET PO (09:24)
[2022-06-05] MEDS: pyRIDostigmine bromide 60 MG TABLET PO ×2 (09:25→18:03)
[2022-06-05] MEDS: calcitrioL 0.25 MCG CAPSULE PO (09:25)
[2022-06-05] MEDS: mycophenolate mofetiL 250 MG CAPSULE 500 MG PO ×2 (09:25→18:02)
[2022-06-05] MEDS: PANTOPRAZOLE 40 MG TABLET PO (09:25)
[2022-06-05 09:40] LABS: Free T4 Free Thyroxine Reflex 1.57 ng/dL (0.78-2.19)
[2022-06-05] MEDS: SODIUM CHLORIDE 0.9% IV 500 ML IV CONT (09:54)
[2022-06-05] MEDS: SODIUM CHLORIDE 0.9% IV 1,000 ML 75 ML IV CONT (09:54)
--- NOTE | 2022-06-05 09:57 | P.PNIM_ITS ---
Progress Note: A&P Assessment and Plan (1) Syncope: Code(s): R55 - Syncope and collapse Status: Acute Assessment and Plan: Patient presented after near syncopal episode. felt to be due to missed myasthenia gravis medications versus orthostatic hypotension secondary to hypovolemia. Today had episode of syncope while sitting up in the chair, promptly resolved after lying down, patient noted to have incontinent liquid stool at time of episode. Syncope may have been secondary to straining vs pain vs hypovolemia from diarrhea. * 500 cc fluid bolus * Continue gentle IV fluid rehydration * Monitor on telemetry * Antihypertensives with parameters. Avoid hypotension * Monitor orthostatics * Head CT no acute findings * EKG with sinus rhythm * no significant electrolyte abnormalities (2) Myasthenia gravis: Code(s): G70.00 - Myasthenia gravis without (acute) exacerbation Status: Acute Assessment and Plan: Patient has been missing some of her myasthenia gravis medications recently. Likely has increased muscle weakness related to this. * home medications have been resumed (3) Weakness: Code(s): R53.1 - Weakness Status: Acute Assessment and Plan: Likely multifactorial secondary to MG, poor compliance to medication regimen, physical deconditioning * Appreciate PT/OT (4) Diarrhea: Code(s): R19.7 - Diarrhea, unspecified Status: Acute Assessment and Plan: patient with incontinent liquid brown stool during syncopal episode today * stool cultures pending * stool occult blood test pending * will hold on antibiotics at this time while awaiting cultures * see plan below (5) Abnormal CT of the abdomen: Code(s): R93.5 - Abnormal findings on diagnostic imaging of other abdominal regions, inc luding retroperitoneum Status: Acute Assessment and Plan: patient complained of abdominal pain and noted to have diarrhea today therefore CT of the abdomen/ pelvis obtained which showed focal wall thickening of the transverse colon, which is indeterminate for malignancy * will proceed with GI consultation. Recommendations appreciated (6) Hypothyroidism: Qualifiers: Hypothyroidism type: acquired Qualified Code(s): E03.9 - Hypothyroidism, unspecified Code(s): E03.9 - Hypothyroidism, unspecified Status: Acute Assessment and Plan: TSH slightly slow with normal T4 and T3 * Continue home levothyroxine * Recheck in 4-6 weeks (7) Dementia: Qualifiers: Dementia type: unspecified type Dementia severity: severe Dementia behavioral or psychological symptom: without behavioral, psychotic, or mood disturbance or anxiety Qualified Code(s): F03.C0 - Unspecified dementia, severe, without behavioral disturbance, psychotic disturbance, mood disturbance, and anxiety Code(s): F03.90 - Unspecified dementia, unspecified severity, without behavioral disturbance, psychotic disturbance, mood disturbance, and anxiety Status: Acute Assessment and Plan: patient A&O x1 today * seems to be consistent with baseline per family report * continue memantine Time Spent With Patient Time: 30 minutes spent in critical care time. 75 minutes total spent on patient encounter Time with patient: Greater than 35 minutes Subjective Date/time seen: 06/05/22 09:57 Interval history: Date of service: 06/05/2022 oJsi Chavis is an 87 year old female with a history of HTN, GERD,
--- NOTE | 2022-06-05 09:57 | PM.IMPN ---
Progress Note: A&P Assessment and Plan (1) Syncope: Code(s): R55 - Syncope and collapse Status: Acute Assessment and Plan: Patient presented after near syncopal episode. felt to be due to missed myasthenia gravis medications versus orthostatic hypotension secondary to hypovolemia. Today had episode of syncope while sitting up in the chair, promptly resolved after lying down, patient noted to have incontinent liquid stool at time of episode. Syncope may have been secondary to straining vs pain vs hypovolemia from diarrhea. 500 cc fluid bolus Continue gentle IV fluid rehydration Monitor on telemetry Antihypertensives with parameters. Avoid hypotension Monitor orthostatics Head CT no acute findings EKG with sinus rhythm no significant electrolyte abnormalities (2) Myasthenia gravis: Code(s): G70.00 - Myasthenia gravis without (acute) exacerbation Status: Acute Assessment and Plan: Patient has been missing some of her myasthenia gravis medications recently. Likely has increased muscle weakness related to this. home medications have been resumed (3) Weakness: Code(s): R53.1 - Weakness Status: Acute Assessment and Plan: Likely multifactorial secondary to MG, poor compliance to medication regimen, physical deconditioning Appreciate PT/OT (4) Diarrhea: Code(s): R19.7 - Diarrhea, unspecified Status: Acute Assessment and Plan: patient with incontinent liquid brown stool during syncopal episode today stool cultures pending stool occult blood test pending will hold on antibiotics at this time while awaiting cultures see plan below (5) Abnormal CT of the abdomen: Code(s): R93.5 - Abnormal findings on diagnostic imaging of other abdominal regions, including retroperitoneum Status: Acute Assessment and Plan: patient complained of abdominal pain and noted to have diarrhea today therefore CT of the abdomen/ pelvis obtained which showed focal wall thickening of the transverse colon, which is indeterminate for malignancy will proceed with GI consultation. Recommendations appreciated (6) Hypothyroidism: Qualifiers: Hypothyroidism type: acquired Qualified Code(s): E03.9 - Hypothyroidism, unspecified Code(s): E03.9 - Hypothyroidism, unspecified Status: Acute Assessment and Plan: TSH slightly slow with normal T4 and T3 Continue home levothyroxine Recheck in 4-6 weeks (7) Dementia: Qualifiers: Dementia type: unspecified type Dementia severity: severe Dementia behavioral or psychological symptom: without behavioral, psychotic, or mood disturbance or anxiety Qualified Code(s): F03.C0 - Unspecified dementia, severe, without behavioral disturbance, psychotic disturbance, mood disturbance, and anxiety Code(s): F03.90 - Unspecified dementia, unspecified severity, without behavioral disturbance, psychotic disturbance, mood disturbance, and anxiety Status: Acute Assessment and Plan: patient A&O x1 today seems to be consistent with baseline per family report continue memantine Time Spent With Patient Time: 30 minutes spent in critical care time. 75 minutes total spent on patient encounter Time with patient: Greater than 35 minutes Subjective Date/time seen: 06/05/22 09:57 Interval history: Date of service: 06/05/2022 Josi Chavis is an 87 year old female with a history of HTN, GERD, hypothyroidism, dementia, CVA, myasthenia gravis, and multiple other medical problems who is seen in follow up for syncopal episode. Called to patients room this morning for rapid response. Patient up in chair conversing with RN when she became unresponsive. She was immediately put back in bed and was easily arousable. Noted to have large amount of liquid stool when put back in bed. Discussed with RN and OT. OT reports this morning patient complained
[2022-06-05 10:02] LABS: Glucose Point of Care 151 mg/dl (65-105)
[2022-06-05 10:52] LABS: IFOB Positive Control Positive; Immunochemical Fecal Occult Bl Negative (N)
--- NOTE | 2022-06-05 10:53 | PCFNICU ---
ICU Rounding Note: Pt current nutrition is NPO. Nutrition Recommendation: Nepro goal rate at 40 ml/hr. Last recorded weight is 66 kg. Bowel Motility:No BM reported. Labs Reviewed: BUN 86, Cr 5.4,Glu 381, Na 126, K 5.1 Meds Noted:Fentanyl, Versed,Protonix, Lasix Skin: WNL Additional Notes: patient NPO. Current with mechanical vent. No plans for nutrition today. Internal pacemaker planned and renal ultrasound. Following daily in ICU rounds.
[2022-06-05 11:04] LABS: Anion Gap 3 mmol/L (8-16); Blood Urea Nitrogen 12 mg/dL (7-17); Calcium 9.2 mg/dL (8.4-10.2); Carbon Dioxide 19 mmol/L (22-30); Chloride 120 mmol/L (98-107); Estimated Glomerular Filt Rate > 60; Glucose 99 mg/dL (65-110); Magnesium 1.9 mg/dL (1.6-2.3); Sodium 142 mmol/L (137-145)
[2022-06-05 11:45] LABS: Toxigenic C. Diff NEGATIVE (NEGATIVE)
[2022-06-05 11:53] LABS: Lactic Acid Reflex 1.1 mmol/L (0.7-2.0)
[2022-06-05] MEDS: hydrALAZINE HCL 25 MG TABLET PO ×2 (14:26→18:02)
--- NOTE | 2022-06-05 16:04 | WPDGICN ---
Assessment and Plan Assessment and plan (1) Abnormal CT of the abdomen: Code(s): R93.5 - Abnormal findings on diagnostic imaging of other abdominal regions, including retroperitoneum Status: Acute Assessment and Plan: Abnormal allergy seen on CT scan imaging is that of thickening of the transverse colon wall. Etiology of this is uncertain. Radiologist suggest barium enema to more thoroughly evaluate. Potentially this could be a spasm for instance. Mass cannot be excluded. Patient is consider DNR. Given her age and comorbid diseases colonoscopy would be difficult. I will obtain a CEA level. Suggest consideration of air contrast barium enema. Stool cultures are pending (2) Diarrhea: Code(s): R19.7 - Diarrhea, unspecified Status: Acute Assessment and Plan: patient had brief diarrhea episode associated with her near syncopal episode. During this interval she is reported to have had abdominal discomfort. I suspect she may have had a spasm. Potentially this was a vagal response. Stool cultures are pending. We will observe her to see if she has any ongoing diarrhea. (3) Dementia: Qualifiers: Dementia type: unspecified type Dementia severity: severe Dementia behavioral or psychological symptom: without behavioral, psychotic, or mood disturbance or anxiety Qualified Code(s): F03.C0 - Unspecified dementia, severe, without behavioral disturbance, psychotic disturbance, mood disturbance, and anxiety Code(s): F03.90 - Unspecified dementia, unspecified severity, without behavioral disturbance, psychotic disturbance, mood disturbance, and anxiety Status: Acute Assessment and Plan: Patient unable to add any useful history given her dementia. (4) Myasthenia gravis: Code(s): G70.00 - Myasthenia gravis without (acute) exacerbation Status: Acute (5) Near syncope: Code(s): R55 - Syncope and collapse Status: Acute GI Consult Note Consult date/time: 06/05/22 16:04 Reason for consult: abnormal ct scan of abdomen. HPI: Josi Chavis is a 87 year old female I am asked to see at the request of the hospitalist service because of an abnormal CT scan of the abdomen. Patient has an underlying history of dementia. She also has a history of myasthenia gravis. She is unable to give any useful history. Currently cared for by her daughters. Patient admitted to the hospital with pneumonia and discharged on May 24. It is reported that she may have missed some of the doses of medication given for treatment of her myasthenia gravis.Apparently she recovered well. Yesterday on 06/04/2022 patient apparently had a syncopal episode. For this reason patient presented to the emergency room. Patient was admitted for further evaluation. Today patient was sitting in a chair and experienced another syncopal episode. During this interval of time she experienced incontinence of diarrhea stool and apparently had some abdominal discomfort. For this reason a CT scan of the abdomen was performed which revealed nonspecific wall thickening of the transverse colon. Patient currently denies any significant abdominal pain. No bleeding was reported. No fever is reported. 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
[2022-06-05 17:08] LABS: Carcinoembryonic Antigen 2.1 ng/mL (0.0-3.0)
[2022-06-05] MEDS: EUCERIN CREAM 120 GM JAR 1 APPLIC TOPICAL (18:03)
[2022-06-05] MEDS: MEMANTINE 10 MG TABLET 20 MG PO (18:03)
[2022-06-06] VITALS (10 sets, daily range): BP systolic 135–142; BP diastolic 52–68; PULSE 59–87; RESP 18–22; TEMP 36–36.1; O2SAT 99–100
--- NOTE | 2022-06-06 04:34 | PC.NURSE ---
Addendum entered by Mireille Tello RN 06/06/22 05:20: Called Dr. Martinez @[id number] to notify about pt's urinary retention. Order to straight cath. Original Note: Pt has had no output for this shift and did not have any oral intake. Bladder scanned 431 mLs.
[2022-06-06 05:34] LABS: Basophils Percent Auto 0.3 % (0.2-1.2); Eosinophils Absolute Auto 0.1 K/mm3 (0-0.3); Hematocrit 39.1 % (37.0-47.0); Hemoglobin 12.2 g/dL (12.0-15.0); Immature Granulocyte Absolute 0.03 K/mm3 (0.00-0.031); Immature Granulocyte Percent A 0.3 % (0-0.5); Immature Platelet Fraction Pct 5.9 % (0.9-11.2); Lymphocytes Absolute Auto 2.53 K/mm3 (0.9-3.2); Lymphocytes Percent Auto 22.8 % (18.3-44.2); Mean Corpuscular HGB Conc 31.2 g/dl (32-36); Mean Corpuscular Hemoglobin 28.3 pg (26-34); Mean Corpuscular Volume 90.7 fl (80-100); Mean Platelet Volume 11.6 fl (7.4-10.4); Monocytes Absolute Auto 0.6 K/mm3 (0.1-0.6); Monocytes Percent Auto 5.6 % (2.6-8.5); Neutrophils Absolute Auto 7.8 K/mm3 (1.3-6.7); Platelet Count Result 140 k/mm3 (150-375); Red Blood Count 4.31 M/mm3 (4.2-5.4); Red Cell Distribution Width 13.2 % (11.5-14.5); White Blood Count 11.1 K/mm3 (4.5-10.0)
[2022-06-06 05:56] LABS: Alanine Aminotransferase 15 U/L (6-35); Albumin Level 3.4 g/dL (3.5-5.1); Alkaline Phosphatase 98 U/L (38-126); Anion Gap 2 mmol/L (8-16); Aspartate Amino Transferase 31 U/L (14-36); Bilirubin,Total 0.7 mg/dL (0.2-1.3); Blood Urea Nitrogen 9 mg/dL (7-17); CRP < 0.5 mg/dL (<1.0); Calcium 8.9 mg/dL (8.4-10.2); Carbon Dioxide 24 mmol/L (22-30); Chloride 113 mmol/L (98-107); Estimated Glomerular Filt Rate > 60; Glucose 83 mg/dL (65-110); Potassium 3.8 mmol/L (3.4-5.0); Sodium 139 mmol/L (137-145)
[2022-06-06] MEDS: LEVOTHYROXINE SODIUM 25 MCG TABLET PO (06:31)
[2022-06-06] MEDS: amLODIPine BESYLATE 5 MG TABLET 10 MG PO (11:37)
[2022-06-06] MEDS: carvediloL 6.25 MG TABLET PO ×2 (11:38→20:11)
[2022-06-06] MEDS: hydrALAZINE HCL 25 MG TABLET PO ×2 (11:38→17:46)
[2022-06-06] MEDS: mycophenolate mofetiL 250 MG CAPSULE 500 MG PO ×2 (11:38→17:46)
[2022-06-06] MEDS: pyRIDostigmine bromide 60 MG TABLET PO ×2 (11:38→17:46)
[2022-06-06] MEDS: ASPIRIN 81 MG ENTERIC TABLET PO (11:38)
[2022-06-06] MEDS: ACYCLOVIR 400 MG TABLET PO (11:39)
[2022-06-06] MEDS: PANTOPRAZOLE 40 MG TABLET PO (11:39)
[2022-06-06] MEDS: EUCERIN CREAM 120 GM JAR 1 APPLIC TOPICAL (11:39)
[2022-06-06] MEDS: GLYCOPYRROLATE 1 MG TABLET PO ×2 (11:39→17:46)
--- NOTE | 2022-06-06 13:22 | WPDGIPROGNO ---
Progress Note: A&P Assessment and Plan (1) Dementia: Qualifiers: Dementia type: unspecified type Dementia severity: severe Dementia behavioral or psychological symptom: without behavioral, psychotic, or mood disturbance or anxiety Qualified Code(s): F03.C0 - Unspecified dementia, severe, without behavioral disturbance, psychotic disturbance, mood disturbance, and anxiety Code(s): F03.90 - Unspecified dementia, unspecified severity, without behavioral disturbance, psychotic disturbance, mood disturbance, and anxiety Status: Acute Assessment and Plan: Dementia is chronic patient appears at baseline. Unable to give useful history. (2) Diarrhea: Code(s): R19.7 - Diarrhea, unspecified Status: Acute Assessment and Plan: Diarrhea appears to be a 1 time episode related to her syncopal event she was incontinent of stool during that episode. Stool cultures were ordered and are pending. I suspect this may be related to a vagal event for instance. No additional workup warranted unless diarrhea becomes long-term. (3) Abnormal CT of the abdomen: Code(s): R93.5 - Abnormal findings on diagnostic imaging of other abdominal regions, including retroperitoneum Status: Acute Assessment and Plan: CT scan of the abdomen obtained shortly after syncopal a pet vent and incontinence of stool suggested nonspecific thickening of the transverse colon. CEA level is normal. Barium enema can be performed. I discussed possible colonoscopy with daughter who agrees that this should not be pursued giving patient's advanced age, severe dementia, and comorbid disease. (4) Near syncope: Code(s): R55 - Syncope and collapse Status: Acute (5) Myasthenia gravis: Code(s): G70.00 - Myasthenia gravis without (acute) exacerbation Status: Acute Subjective Date/time seen: 06/06/22 13:22 Interval history: Patient alert this morning comfortable at rest. Remains at her baseline level of dementia. Not well oriented. Denies any complaints. Patient seen in the presence of her daughter who is visiting. No additional diarrhea episodes noted since yesterday. No additional syncopal episodes. Review of Systems Review of Systems: ROS unobtainable: Yes unobtainable due to mental status Exam Narrative: Physical exam reveals patient to be alert. Patient is not oriented. HEENT exam reveals patient to be anicteric. Lungs are clear. Heart without murmur. Abdomen bowel sounds are present soft nontender with no organomegaly. Objective Data Vital Signs Vital Signs: Vital Signs - 24 hr 06/05/22 15:29 06/05/22 16:00 06/05/22 18:00 Temperature 97.5 F L Pulse Rate 80 85 Respiratory Rate 18 Blood Pressure 144/78 H 151/60 H Pulse Oximetry 94 Oxygen Delivery 06/05/22 20:21 06/05/22 22:15 06/05/22 22:00 Temperature 97.1 F L Pulse Rate 70 70 Respiratory Rate 20 Blood Pressure 151/61 H Pulse Oximetry 70 L Oxygen Delivery Room Air 06/05/22 20:00 06/06/22 00:45 06/06/22 04:12 Temperature 97.0 F L Pulse Rate 73 70 72 Respiratory Rate 22 H Blood Pressure 142/52 H Pulse Oximetry 100 Oxygen Delivery 06/06/22 04:00 06/06/22 08:00 06/06/22 12:00 Temperature Pulse Rate 59 L 61 77 Respiratory Rate Blood Pressure Pulse Oximetry Oxygen Delivery Intake/Output Intake/Output: Intake & Output 06/03/22 06/04/22 06/05/22 06/06/22 23:59 23:59 23:59 23:59 Intake Total 2040 240 Output Total 600 1500 Balance 1440 -1260 Meds/Results Medications: Active Medications Generic Name Dose Route Start Last Admin Trade Name Maxq PRN Reason Stop Dose Admin Acetaminophen 650 mg 06/04/22 17:55 Acetaminophen 325 Mg Tablet PO Q4H PRN Mild Pain (1-3) or Fever Acyclovir 400 mg 06/05/22 09:00 06/06/22 11:39 Acyclovir 400 Mg Tablet PO 400 mg DAILY JOHNNY Administration Amlodipine Besy
--- NOTE | 2022-06-06 17:12 | P.PNIM_ITS ---
Progress Note: A&P Assessment and Plan (1) Syncope: Code(s): R55 - Syncope and collapse Status: Acute Assessment and Plan: Patient presented after near syncopal episode. felt to be due to missed myasthenia gravis medications versus orthostatic hypotension secondary to hypovolemia. Today had episode of syncope while sitting up in the chair, promptly resolved after lying down, patient noted to have incontinent liquid stool at time of episode. Syncope may have been secondary to vasovagal response due to straining straining vs pain vs hypovolemia from diarrhea. * patient rehydrated with IV fluids * Monitor on telemetry * Antihypertensives with parameters. Avoid hypotension * Monitor orthostatics * Head CT no acute findings * EKG with sinus rhythm * no significant electrolyte abnormalities (2) Diarrhea: Code(s): R19.7 - Diarrhea, unspecified Status: Acute Assessment and Plan: patient with incontinent liquid brown stool during syncopal episode on 06/05 * stool cultures pending * C. diff negative * stool occult blood test negative * will hold on antibiotics at this time while awaiting cultures * see plan below (3) Abnormal CT of the abdomen: Code(s): R93.5 - Abnormal findings on diagnostic imaging of other abdominal regions, including retroperitoneum Status: Acute Assessment and Plan: patient complained of abdominal pain and noted to have diarrhea today therefore CT of the abdomen/ pelvis obtained which showed focal wall thickening of the transverse colon, which is indeterminate for malignancy * appreciate GI consult * CEA within normal limits * proceed with barium enema per GI recommendations * not a candidate for colonoscopy due to advanced age and comorbid conditions (4) Myasthenia gravis: Code(s): G70.00 - Myasthenia gravis without (acute) exacerbation Status: Acute Assessment and Plan: Patient has been missing some of her myasthenia gravis medications recently. Likely has increased muscle weakness related to this. * home medications have been resumed (5) Weakness: Code(s): R53.1 - Weakness Status: Acute Assessment and Plan: Likely multifactorial secondary to MG, poor compliance to medication regimen, physical deconditioning * Appreciate PT/OT (6) Hypothyroidism: Qualifiers: Hypothyroidism type: acquired Qualified Code(s): E03.9 - Hypothyroidism, unspecified Code(s): E03.9 - Hypothyroidism, unspecified Status: Acute Assessment and Plan: TSH slightly slow with normal T4 and T3 * Continue home levothyroxine * Recheck in 4-6 weeks (7) Dementia: Qualifiers: Dementia type: unspecified type Dementia severity: severe Dementia behavioral or psychological symptom: without behavioral, psychotic, or mood disturbance or anxiety Qualified Code(s): F03.C0 - Unspecified dementia, severe, without behavioral disturbance, psychotic disturbance, mood disturbance, and anxiety Code(s): F03.90 - Unspecified dementia, unspecified severity, without behavioral disturbance, psychotic disturbance, mood disturbance, and anxiety Status: Acute Assessment and Plan: patient A&O x1 today * seems to be consistent with baseline per family report * continue memantine Subjective Date/time seen: 06/06/22 17:12 Interval history: Date of service: 06/06/2022 Josi Chavis is an 87 year old female with a history of HTN, GERD, hypothyroidism, de
--- NOTE | 2022-06-06 17:12 | PM.IMPN ---
Progress Note: A&P Assessment and Plan (1) Syncope: Code(s): R55 - Syncope and collapse Status: Acute Assessment and Plan: Patient presented after near syncopal episode. felt to be due to missed myasthenia gravis medications versus orthostatic hypotension secondary to hypovolemia. Today had episode of syncope while sitting up in the chair, promptly resolved after lying down, patient noted to have incontinent liquid stool at time of episode. Syncope may have been secondary to vasovagal response due to straining straining vs pain vs hypovolemia from diarrhea. patient rehydrated with IV fluids Monitor on telemetry Antihypertensives with parameters. Avoid hypotension Monitor orthostatics Head CT no acute findings EKG with sinus rhythm no significant electrolyte abnormalities (2) Diarrhea: Code(s): R19.7 - Diarrhea, unspecified Status: Acute Assessment and Plan: patient with incontinent liquid brown stool during syncopal episode on 06/05 stool cultures pending C. diff negative stool occult blood test negative will hold on antibiotics at this time while awaiting cultures see plan below (3) Abnormal CT of the abdomen: Code(s): R93.5 - Abnormal findings on diagnostic imaging of other abdominal regions, including retroperitoneum Status: Acute Assessment and Plan: patient complained of abdominal pain and noted to have diarrhea today therefore CT of the abdomen/ pelvis obtained which showed focal wall thickening of the transverse colon, which is indeterminate for malignancy appreciate GI consult CEA within normal limits proceed with barium enema per GI recommendations not a candidate for colonoscopy due to advanced age and comorbid conditions (4) Myasthenia gravis: Code(s): G70.00 - Myasthenia gravis without (acute) exacerbation Status: Acute Assessment and Plan: Patient has been missing some of her myasthenia gravis medications recently. Likely has increased muscle weakness related to this. home medications have been resumed (5) Weakness: Code(s): R53.1 - Weakness Status: Acute Assessment and Plan: Likely multifactorial secondary to MG, poor compliance to medication regimen, physical deconditioning Appreciate PT/OT (6) Hypothyroidism: Qualifiers: Hypothyroidism type: acquired Qualified Code(s): E03.9 - Hypothyroidism, unspecified Code(s): E03.9 - Hypothyroidism, unspecified Status: Acute Assessment and Plan: TSH slightly slow with normal T4 and T3 Continue home levothyroxine Recheck in 4-6 weeks (7) Dementia: Qualifiers: Dementia type: unspecified type Dementia severity: severe Dementia behavioral or psychological symptom: without behavioral, psychotic, or mood disturbance or anxiety Qualified Code(s): F03.C0 - Unspecified dementia, severe, without behavioral disturbance, psychotic disturbance, mood disturbance, and anxiety Code(s): F03.90 - Unspecified dementia, unspecified severity, without behavioral disturbance, psychotic disturbance, mood disturbance, and anxiety Status: Acute Assessment and Plan: patient A&O x1 today seems to be consistent with baseline per family report continue memantine Subjective Date/time seen: 06/06/22 17:12 Interval history: Date of service: 06/06/2022 Josi Chavis is an 87 year old female with a history of HTN, GERD, hypothyroidism, dementia, CVA, myasthenia gravis, and multiple other medical problems who is seen in follow up for syncopal episode. patient is a poor historian is not able to answer any questions appropriately or provide any history. spoke with RN reports patient is doing well. She does note poor p.o. intake. Required straight catheterization early this morning but patient has been able to void independently since that time with no evidence of urinary reten
[2022-06-06] MEDS: MEMANTINE 10 MG TABLET 20 MG PO (17:46)
[2022-06-07] VITALS (11 sets, daily range): BP systolic 100–134; BP diastolic 45–83; PULSE 58–84; RESP 14–20; TEMP 36.1–36.8; O2SAT 99–100
[2022-06-07] MEDS: LEVOTHYROXINE SODIUM 25 MCG TABLET PO (06:15)
[2022-06-07 06:21] LABS: Hematocrit 37.3 % (37.0-47.0); Hemoglobin 11.9 g/dL (12.0-15.0); Mean Corpuscular HGB Conc 31.9 g/dl (32-36); Mean Corpuscular Hemoglobin 28.9 pg (26-34); Mean Corpuscular Volume 90.5 fl (80-100); Mean Platelet Volume 10.6 fl (7.4-10.4); Platelet Count Result 149 k/mm3 (150-375); Red Blood Count 4.12 M/mm3 (4.2-5.4); Red Cell Distribution Width 13.4 % (11.5-14.5); White Blood Count 7.9 K/mm3 (4.5-10.0)
[2022-06-07 06:37] LABS: Anion Gap 0 mmol/L (8-16); Blood Urea Nitrogen 9 mg/dL (7-17); Carbon Dioxide 28 mmol/L (22-30); Chloride 110 mmol/L (98-107); Estimated Glomerular Filt Rate > 60; Glucose 87 mg/dL (65-110); Potassium 3.3 mmol/L (3.4-5.0); Sodium 138 mmol/L (137-145)
--- NOTE | 2022-06-07 07:55 | WPDGIPROGNO ---
Progress Note: A&P Assessment and Plan (1) Diarrhea: Code(s): R19.7 - Diarrhea, unspecified Status: Acute Assessment and Plan: Diarrhea resolved. Appears to be related to event where she had syncope. suspect this was vasovagal. No additional workup at this time. Stool cultures pending. (2) Abnormal CT of the abdomen: Code(s): R93.5 - Abnormal findings on diagnostic imaging of other abdominal regions, including retroperitoneum Status: Acute Assessment and Plan: Nonspecific thickening of transverse colon on CT scan appears spurious. Given patient's dementia, myasthenia and poor overall condition colonoscopy is not recommended. Discussed this with family and they agree. (3) Dementia: Qualifiers: Dementia type: unspecified type Dementia severity: severe Dementia behavioral or psychological symptom: without behavioral, psychotic, or mood disturbance or anxiety Qualified Code(s): F03.C0 - Unspecified dementia, severe, without behavioral disturbance, psychotic disturbance, mood disturbance, and anxiety Code(s): F03.90 - Unspecified dementia, unspecified severity, without behavioral disturbance, psychotic disturbance, mood disturbance, and anxiety Status: Acute (4) Myasthenia gravis: Code(s): G70.00 - Myasthenia gravis without (acute) exacerbation Status: Acute (5) Near syncope: Code(s): R55 - Syncope and collapse Status: Acute Subjective Date/time seen: 06/07/22 07:55 Interval history: Patient alert. Not oriented. Remains at baseline. No additional diarrhea reported. Patient denies abdominal pain. Review of Systems Review of Systems: Review of systems noncontributory. Exam Narrative: Physical exam reveals patient be alert. Not oriented. HEENT exam with no icterus. Lungs are clear. Heart without murmur. Abdomen bowel sounds present soft nontender no organomegaly. Objective Data Vital Signs Vital Signs: Vital Signs - 24 hr 06/06/22 08:00 06/06/22 12:00 06/06/22 14:00 Temperature Pulse Rate 61 77 87 Respiratory Rate 18 Blood Pressure 135/68 Pulse Oximetry 99 Oxygen Delivery 06/06/22 16:00 06/06/22 20:11 06/06/22 20:00 Temperature Pulse Rate 84 84 70 Respiratory Rate Blood Pressure Pulse Oximetry Oxygen Delivery 06/06/22 20:00 06/06/22 20:47 06/07/22 00:00 Temperature 96.8 F L Pulse Rate 84 79 67 Respiratory Rate 18 18 Blood Pressure 136/59 L Pulse Oximetry 99 100 Oxygen Delivery Room Air 06/07/22 05:11 06/07/22 04:00 Temperature 97.0 F L Pulse Rate 67 58 L Respiratory Rate 20 Blood Pressure 134/63 Pulse Oximetry 99 Oxygen Delivery Intake/Output Intake/Output: Intake & Output 06/04/22 06/05/22 06/06/22 06/07/22 23:59 23:59 23:59 23:59 Intake Total 2040 1200 0 Output Total 600 2000 300 Balance 1440 -800 -300 Meds/Results Medications: Active Medications Generic Name Dose Route Start Last Admin Trade Name Freq PRN Reason Stop Dose Admin Acetaminophen 650 mg 06/04/22 17:55 Acetaminophen 325 Mg Tablet PO Q4H PRN Mild Pain (1-3) or Fever Acyclovir 400 mg 06/05/22 09:00 06/06/22 11:39 Acyclovir 400 Mg Tablet PO 400 mg DAILY JOHNNY Administration Amlodipine Besylate 10 mg 06/05/22 09:00 06/06/22 11:37 Amlodipine Besylate 5 Mg Tablet PO 10 mg DAILY JOHNNY Administration Aspirin 81 mg 06/05/22 09:00 06/06/22 11:38 Aspirin 81 Mg Enteric Tablet PO 81 mg DAILY JOHNNY Administration Calcitriol 0.25 mcg 06/10/22 09:00 Calcitriol 0.25 Mcg Capsule PO [id number] JOHNNY Carvedilol 6.25 mg 06/04/22 21:55 06/06/22 20:11 Carvedilol 6.25 Mg Tablet PO 6.25 mg Q12HR JOHNNY Administration Fluticasone Propionate 1 spray 06/04/22 21:40 Fluticasone Propionate 0.05% Na Spr 16 Gm Btl (*Bkc) NASAL Q6-8H PRN Congestion Furosemide 20 mg 06/05/22 09:00 06/05/22 11:24
[2022-06-07] MEDS: mycophenolate mofetiL 250 MG CAPSULE 500 MG PO (10:10)
[2022-06-07] MEDS: pyRIDostigmine bromide 60 MG TABLET PO (10:11)
[2022-06-07] MEDS: ACYCLOVIR 400 MG TABLET PO (10:11)
[2022-06-07] MEDS: PANTOPRAZOLE 40 MG TABLET PO (10:12)
[2022-06-07] MEDS: ASPIRIN 81 MG ENTERIC TABLET PO (10:14)
[2022-06-07] MEDS: GLYCOPYRROLATE 1 MG TABLET PO (10:14)
[2022-06-07] MEDS: amLODIPine BESYLATE 5 MG TABLET 10 MG PO (10:18)
[2022-06-07] MEDS: carvediloL 6.25 MG TABLET PO (10:19)
[2022-06-07] MEDS: hydrALAZINE HCL 25 MG TABLET PO (10:19)
[2022-06-07] MEDS: EUCERIN CREAM 120 GM JAR 1 APPLIC TOPICAL (10:20)
[2022-06-07] MEDS: POTASSIUM CHLORIDE 20 MEQ PACKET (FOR LIQUID) PO (10:27)
--- NOTE | 2022-06-07 14:29 | PM.DS ---
DS: Admitting Diagnosis Discharge Date 06/07/2022 Admitting Diagnosis syncope DS: Discharge Diagnosis Discharge Diagnosis (1) Syncope: Code(s): R55 - Syncope and collapse Status: Acute Assessment and Plan: Patient presented after near syncopal episode. felt to be due to missed myasthenia gravis medications versus orthostatic hypotension secondary to hypovolemia. During admission pt had episode of syncope while sitting up in the chair, promptly resolved after lying down, patient noted to have incontinent liquid stool at time of episode. Mobile to be most likely vasovagal in etiology. Patient rehydrated with IV fluids Monitored on telemetry with no significant abnormalities Antihypertensives were continued with parameters however BP remained low end of normal therefore all antihypertensives placed on hold. Pt should monitor BP and follow up with PCP for review Orthostatics negative Head CT no acute findings EKG with sinus rhythm no significant electrolyte abnormalities (2) Diarrhea: Code(s): R19.7 - Diarrhea, unspecified Status: Acute Assessment and Plan: patient with incontinent liquid brown stool during syncopal episode on 06/05 C. diff negative Additional stool cultures ordered but cancelled; unclear if due to sample inadequacy stool occult blood test negative no indication for antibiotics pt seen in consultation by gastroenterology. Mobile to be secondary to vasovagal episode (3) Abnormal CT of the abdomen: Code(s): R93.5 - Abnormal findings on diagnostic imaging of other abdominal regions, including retroperitoneum Status: Acute Assessment and Plan: Patient with was and diarrhea times syncopal episode and patient noted complaints abdominal pain Therefore CT of the abdomen/pelvis was obtained which showed focal wall thickening of the transverse colon, indeterminate for malignancy patient was evaluated by Gastroenterology [facility] within normal limits barium enema showed incomplete study with new place in ascending colon and hepatic flexure, however region of concern was appropriately visualized and appeared mucosal irregularities, strictures, thickening, or mass. did reveal small filling defects your rectosigmoid junction which may be due to sessile polyp versus mobile stool with recommendations for further monitoring with colonoscopy based on the patient's advancing age and comorbid conditions, colonoscopy not recommended at this time. Patient's daughter/POA reports no desire for invasive testing such as colonoscopy due to patient's dementia (4) Myasthenia gravis: Code(s): G70.00 - Myasthenia gravis without (acute) exacerbation Status: Acute Assessment and Plan: Patient has been missing some of her myasthenia gravis medications recently. Likely has increased muscle weakness related to this. home medications have been resumed discussed importance of compliance to medication regimen patient's daughter (5) Weakness: Code(s): R53.1 - Weakness Status: Acute Assessment and Plan: Likely multifactorial secondary to MG, poor compliance to medication regimen, physical deconditioning patient participated in PT / OT during admission continue therapy with home health (6) Hypothyroidism: Qualifiers: Hypothyroidism type: acquired Qualified Code(s): E03.9 - Hypothyroidism, unspecified Code(s): E03.9 - Hypothyroidism, unspecified Status: Acute Assessment and Plan: TSH slightly low with normal T4 and T3 Continue home levothyroxine Recheck in 4-6 weeks (7) Dementia: Qualifiers: Dementia type: unspecified type Dementia severity: severe Dementia behavioral or psychological symptom: without behavioral, psychotic, or mood disturbance or anxiety Qualified Code(s): F03.C0 - Unspecified dementia, severe, without behavioral disturbance, psychotic disturbance, m
== END 2022-06-07 17:30 | disposition home health service (06) ==
LOC: ANHED 17:55 → ANH2MED 19:35
PROVIDERS: Internal Medicine Gastroenterology; Admitting Provider Internal Medicine; Emergency Provider Emergency Medicine; Visit Provider Physician Assistant
DX: R55 Syncope and collapse (principal); G70.00 Myasthenia gravis without (acute) exacerbation; R19.7 Diarrhea, unspecified; R93.5 Abnormal findings on diagnostic imaging of other abdominal regions, including retroperitoneum; E03.9 Hypothyroidism, unspecified; F03.90 Unspecified dementia, unspecified severity, without behavioral disturbance, psychotic disturbance, mood disturbance, and anxiety; E87.8 Other disorders of electrolyte and fluid balance, not elsewhere classified; D84.821 Immunodeficiency due to drugs; I49.9 Cardiac arrhythmia, unspecified; I10 Essential (primary) hypertension; J32.9 Chronic sinusitis, unspecified; J98.11 Atelectasis; Z96.652 Presence of left artificial knee joint; Z66 Do not resuscitate; Z86.73 Personal history of transient ischemic attack (TIA), and cerebral infarction without residual deficits; Z82.49 Family history of ischemic heart disease and other diseases of the circulatory system; E78.5 Hyperlipidemia, unspecified; Z79.82 Long term (current) use of aspirin; Z79.899 Other long term (current) drug therapy
CPT/HCPCS: 36415; 70450; 71045; 74176; 74270; 80048; 80053; 81003; 82274; 82378; 82948; 83605; 83735; 84439; 84443; 84480; 84484; 85025; 85027; 85055; 85610; 85730; 86140; 87493; 93005; 96360; 96361; 97161; 97165; 99285; A9270; G0378; J7030; J7040; J7517